=== PATIENT | male | born 1955 | race Caucasian/White ===

== ENCOUNTER → 2020-03-16 | Outpatient (CLI) | payer MEDICARE, OTHER ==
--- NOTE | 2020-03-16 11:13 | XR ---
EXAMINATION TYPE: XR KUB DATE OF EXAM: 03/16/2020 COMPARISON: 05/04/2014 HISTORY: Stent placement TECHNIQUE: One view abdominal series FINDINGS: The osseous structures are intact. The bowel gas pattern is nonspecific. Left double-J ureteral sten t noted. There are 2 calcifications overlying the renal outline largest measuring diameter 3 mm. Ther e are numerous calcifications involving the mid to distal ureter along the course of the stent. There is at least one 5 mm calcification overlying the right kidney. Bowel content limits assessment of portions of the right renal outline. Arthropathy of the hips. IMPRESSION: 1. Numerous calcifications along the mid to distal ureteral stent. 2. Bilateral nephrolithiasis
== END | disposition home or self-care (01) ==
LOC: RADXRMAIN 10:49
PROVIDERS: ATTEND Urology
DX: N20.0 Calculus of kidney (principal); N28.89 Other specified disorders of kidney and ureter; Z96.0 Presence of urogenital implants
CPT/HCPCS: 74018

== ENCOUNTER 2020-03-24 08:20 | Day surgery (SDC) | payer MEDICARE, OTHER ==
[2020-03-18 15:57] VITALS: BMI 24.0
--- NOTE | 2020-03-23 08:12 | P.HPIHPCON ---
History of Present Illness H&P Date: 03/23/20 Chief Complaint: left ureteral stone/ bilateral renal stones Mr. Field is a 64 yo male with hx of left sided ureteral stone S/P left ureteroscopy and ESWL at [place]. He had a follow up KUB which showed residual stone along the stent and bilateral non-obstructive stones. I discussed with him given his residual stone he will need to undergo ureteroscopy to address his stone burden prior to removing the stent. His KUB also showed bilateral renal calculi, option of observation, Ureteroscopy and ESWL were discussed with him for those stone. He agreed to proceed with bilateral ureteroscopy, with holmium laser lithotripsy. Discussed risk and benefit in details. He agreed to proceed. I discussed with him the risk of bleeding, infection, ureteral perforation. I also discussed risk from anesthesia. Consent for Procedure: I have explained the operation/procedure to the patient, including the risks, benefits, side effects, alternative therapies (including not receiving the proposed treatment or service), the likelihood of the patient achieving his/her goals, and potential recuperation problems for the procedure/sedation/analgesia, as well as any blood products, if indicated. I also explained to the patient the risks, benefits and side effects of the alternatives, as well as the risks related to not receiving the proposed procedure, care, treatment, or services. - Constitutional Constitutional: Denies chills, Denies fever - Respiratory Respiratory: Denies cough, Denies 7 - Gastrointestinal Gastrointestinal: Reports as per HPI Past Medical History Past Medical History: GERD/Reflux, Hyperlipidemia Additional Past Medical History / Comment(s): Multiple nephrolithiasis , R kidney is smaller. History of Any Multi-Drug Resistant Organisms: None Reported Past Surgical History: Hernia Repair Additional Past Surgical History / Comment(s): Multiple lithotripsies, bilateral inguinal hernia repairs, cataract removal bilaterally, colonoscopy-normal. Past Anesthesia/Blood Transfusion Reactions: Postoperative Nausea & Vomiting (PONV) Additional Past Anesthesia/Blood Transfusion Reaction / Comment(s): Pt has had PONV with some of his surgeries.no hx blood transfusion Smoking Status: Former smoker - Past Family History Father Family Medical History: COPD, Coronary Artery Disease (CAD), Myocardial Infarction ([place]) Additional Family Medical History / Comment(s): Father of a ME at age 67 yrs. He was a smoker. Mother Additional Family Medical History / Comment(s): Abiodun. Mother at age 90 yrs of age. Medications and Allergies Home Medications Medication Instructions Recorded Confirmed Type Omeprazole 20 mg PO QAM 10/28/15 03/18/20 History Potassium Citrate [Urocit-K] 15 meq PO BID 10/28/15 03/18/20 History Pravastatin Sodium [Pravachol] 20 mg PO HS 10/28/15 03/18/20 History allopurinoL [Zyloprim] 100 mg PO DAILY 10/28/15 03/18/20 History Acetaminophen [Tylenol Extra 500 - 1,000 mg PO Q6H PRN 03/18/20 03/18/20 History Strength] HYDROcodone/APAP 5-325MG [[place] 1 tab PO Q6HR PRN 03/18/20 03/18/20 History 5-325] Multivitamins, Thera [Multivitamin 1 tab PO DAILY 03/18/20 03/18/20 History (formulary)] Vitamin D (Unknown Dose) 1 tab PO DAILY 03/18/20 03/18/20 History Allergies Allergy/AdvReac Type Severity Reaction Status Date / Time No Known Allergies Allergy Verified 03/18/20 15:50 Surgical - Exam - General well developed, well nourished, no distress, moderate pain - ENT normal mucosa, no hearing loss - Respiratory normal expansion, normal respiratory effort - Psychiatric oriented to time, oriented to person, oriented to place Assessment and Plan Assessment: Mr Field is 64 yo male with hx of left sided ureteral stone and bilateral renal stones -OR for cystoscopy, bilateral ureteroscopy, holmium laser lithotripsy, stone basketting and stent placement
[~2020-03-24 08:20] MED LIST: LACTATED RINGERS 1,000 ML IV SCH
--- NOTE | 2020-03-24 08:39 | XR ---
EXAMINATION TYPE: XR KUB DATE OF EXAM: 03/24/2020 HISTORY: kidney stones,DOS 03-24-20 Comparison: 03/16/2020Single KUB is submitted for interpretation. Findings: Right renal calculi: Stable right-sided nephrolithiasis. Right ureteral calculi: None Visualized. Left renal calculi: Stable renal calculus lower pole left kidney. Left ureteral calculi: Left-sided ureteral stent noted with multiple fragmented calcifications noted along the course of the middle one third of the left ureter. Pelvic calcifications: None Visualized. Bowel gas pattern is unremarkable. No free air. No mass effects. IMPRESSION: 1. Left-sided ureteral stent noted with multiple fragmented calcifications noted along the course of the middle one third of the left ureter.
[2020-03-24 08:50] VITALS: RESP 16
[2020-03-24] MEDS ORDERED: ONDANSETRON 4 MG/2 ML VIAL ONE ×2 (08:53→10:42)
[2020-03-24] MEDS ORDERED: DEXAMETHASONE SOD PHOSPHATE 10 MG/ML 1 ML VIAL IV ONE (08:55)
[2020-03-24] MEDS ORDERED: LIDOCAINE 1% INJ 10MG/ML (20 ML MDV) ONE (10:42)
[2020-03-24] MEDS ORDERED: PROPOFOL 10 MG/ML 20 ML VIAL IV ONE (10:42)
[2020-03-24] MEDS ORDERED: fentaNYL (PF) 50 MCG/ML 2 ML AMP ONE (10:42)
[2020-03-24] MEDS ORDERED: MIDAZOLAM 2 MG/2 ML VIAL ONE (10:42)
[2020-03-24] MEDS ORDERED: ePHEDrine SULFATE/0.9% NACL/PF 50 MG/5 ML SYRINGE IV ONE (10:42)
[2020-03-24] MEDS ORDERED: SUCCINYLCHOLINE CHLORIDE 100 MG/5 ML SYR IV ONE (10:42)
[2020-03-24] MEDS ORDERED: LACTATED RINGERS 1,000 ML IV ONE (12:15)
[2020-03-24] MEDS ORDERED: IOHEXOL 350 MG/ML 50 ML in EMPTY BAG 1 BAG IRRIGATION ONE (12:47)
--- NOTE | 2020-03-24 14:51 | P.OP ---
Date of Procedure: 03/24/20 Preoperative Diagnosis: left ureteral stone, bilateral renal stones Postoperative Diagnosis: same Procedure(s) Performed: cystoscopy, bilateral ureteroscopy, left laser lithotripsy, stone basketing, bilateral retrograde pyelogram and bilateral stent placement Implants: 6-Icelandic by 26 cm stent bilaterally Anesthesia: LYUDMILA Surgeon: Edgar Sloan Estimated Blood Loss (ml): 10 Pathology: other (left ureteral stone) Condition: stable Disposition: PACU Indications for Procedure: Mr. Field is a 64 yo male with hx of left sided ureteral stone S/P left ureteroscopy and ESWL at [place]. He had a follow up KUB which showed residual stone along the stent and bilateral non-obstructive stones. I discussed with him given his residual stone he will need to undergo ureteroscopy to address his stone burden prior to removing the stent. His KUB also showed bilateral renal calculi, option of observation, Ureteroscopy and ESWL were discussed with him for those stone. He agreed to proceed with bilateral ureteroscopy, with holmium laser lithotripsy. Discussed risk and benefit in details. He agreed to proceed. I discussed with him the risk of bleeding, infection, ureteral perforation. I also discussed risk from anesthesia. Operative Findings: ureteral stent with significant stones around the stent unable to remove the stent initially, requiring laser lithotripsy of stones around the stent in order to remove the stent. Multiple fragments throughout the distal left ureter. Significant scarring of the distal ureter. 3 stones in the left kidney. Description of Procedure: the patient was brought to the operating room, general anesthesia was induced. He was prepped and draped in sterile fashion a placement dorsal lithotomy position. Cystoscopy fitted with a 21-Icelandic sheath was inserted per urethra, there was evidence of a bulbar stricture but I was able to navigate the scope past the stricture. Additionally within the prostate there appears to be 2 false passages that were smaller caliber. The cystoscope was advanced past the prostate and into the bladder, cystoscopy was performed showed no abnormality within the bladder. Attention was then carried to the left ureteral orifice the stent was grasped using a stent grasper and I attempted to remove the stent but the stent was stuck at the distal ureter. At this time a semirigid ureteroscope was inserted through the urethra and advanced up the left ureteral orifice, there was significant amount of stone around the stents. the ureter was of narrow caliber, and there was significant scarring in the distal to mid ureter junction. Using the holmium laser the fragment were fragmented. And the stent was removed. At this time the semirigid ureteroscopy was reinserted, multiple large stone fragments were encountered and fragmented using the holmium laser, the fragments were removed using the stone basket. Repeat ureteroscopy showed no residual stones but of note there was severe scarring, with white fibrotic tissue at the distal to mid ureter junction, the area of scarring was 3 cm. The rest of the ureter was of normal appearance. At this time a sensor wire was advanced through the ureteroscope and the ureteroscope was withdrawn with the wire in place. Next an 11 x 13-Icelandic access sheath was passed over the wire and the flexible ureteroscope was reinserted through the access sheath, renoscopy was performed which showed approximately 3 stones within the kidney which were dusted using the holmium laser. Repeat renoscopy showed no sizable fragments or any additional stones. Pullback ureteroscopy was performed which showed no injury to the ureter just the area of scarring that was previously noticed. At this time a 6-Icelandic by 26 cm stent was passed over the wire, the proximal curl was visualized on fluoroscopy and the distal curl using the cystoscope. Attention was encountered to the right side. Right-sided was intubated with a 5-Icelandic open-ended catheter and retrograde Polygram was performed which showed no filling defect along the course a ureter. Of note the ureter was of narrow caliber there was tortuosity along the proximal ureter. Next a sensor wire was advanced through the catheter and the catheter was removed with the wire in place. Next an 11 x 13-Icelandic access sheath was passed over the wire but resistance was met at the distal ureter. At this time the access sheath was removed with the wire was remained in place. Next a flexible ureteroscope was advanced over the wire and I was able to advance the ureteroscope up to the proximal ureter, but at that area there was an additional area of narrowing and was not able to navigate the scope past the narrowing. at this time the ureteroscope was withdrawn and a 6-Icelandic by 26 cm stent was passed over the wire the proximal closure the fluoroscopy and the distal curl visualized using the cystoscope. The bladder and emptied and then the case the patient tolerated the procedure well was taken to PACU in stable condition
[2020-03-24 14:53] VITALS: TEMP 97
[2020-03-24] MEDS: HYDROmorphone 0.5 MG/0.5 ML SYRINGE IVP PRN ×2 (15:01→15:13)
--- NOTE | 2020-03-24 15:11 | FL ---
EXAMINATION TYPE: FL urography retrograde DATE OF EXAM: 03/24/2020 COMPARISON: NONE HISTORY: KENN RENAL CALCULI, LASER LITHO, KENN STENT PLACE TECHNIQUE: Fluoroscopy. FINDINGS: dr. eason supervised use of noel for a kenn renal calculi, used laser to break stones, kenn stent placement. fl time of 1.32 mins IMPRESSION: As Above.
[2020-03-24] MEDS ORDERED: traMADol 50 MG TAB ONE (16:24)
[2020-03-24 16:47] VITALS: BP 157/85; PULSE 77
[2020-03-24] MEDS ORDERED: DEXAMETHASONE SOD PHOSPHATE 4 MG/ML 1 ML VIAL IVP ONE (16:54)
== END 2020-03-24 17:08 | disposition home or self-care (01) ==
LOC: OR 08:20
PROVIDERS: ATTEND Urology
DX: N20.2 Calculus of kidney with calculus of ureter (principal); N35.912 Unspecified bulbous urethral stricture, male; E78.5 Hyperlipidemia, unspecified; K21.9 Gastro-esophageal reflux disease without esophagitis; Z87.891 Personal history of nicotine dependence; Z87.442 Personal history of urinary calculi; Z79.899 Other long term (current) drug therapy; Z98.890 Other specified postprocedural states; Z98.41 Cataract extraction status, right eye; Z98.42 Cataract extraction status, left eye; Z82.49 Family history of ischemic heart disease and other diseases of the circulatory system; Z81.2 Family history of tobacco abuse and dependence; Z83.6 Family history of other diseases of the respiratory system
CPT/HCPCS: 82365; 74420; 74018; 52356; 52332; C2625; C1758; C1769; J2250; J1100 ×2; J0690; J2405; J2001; J3010; J0330; J2704; Q9967; J1170

== ENCOUNTER 2020-04-16 11:19 | Day surgery (SDC) | payer OTHER, MEDICARE ==
[2020-04-13 13:32] VITALS: BMI 23.8
--- NOTE | 2020-04-15 22:04 | P.HPIHPCON ---
History of Present Illness H&P Date: 04/15/20 Chief Complaint: right sided renal stone Mr Field is 64 yo with hx of left sided ureteral stone S/P left ureteroscopy, for impacted ureteral stone, and scarred left ureter. He also has hx of right sided stone, He presents today for right sided ureteroscopy and left sided left sided reterograde pyelogram to assess for healing of scarring prior to stent removal. I discussed with him the risk of bleeding, infection and injury to the ureter. He understood all risks and agreed to proceed Consent for Procedure: I have explained the operation/procedure to the patient, including the risks, benefits, side effects, alternative therapies (including not receiving the proposed treatment or service), the likelihood of the patient achieving his/her goals, and potential recuperation problems for the procedure/sedation/analgesia, as well as any blood products, if indicated. I also explained to the patient the risks, benefits and side effects of the alternatives, as well as the risks related to not receiving the proposed procedure, care, treatment, or services. - Constitutional Constitutional: Denies chills, Denies fever - Cardiovascular Cardiovascular: Denies chest pain, Denies shortness of breath - Respiratory Respiratory: Denies cough, Denies 7 - Musculoskeletal Musculoskeletal: Denies myalgias - Neurological Neurological: Denies numbness, Denies weakness Past Medical History Past Medical History: GERD/Reflux, Hyperlipidemia Additional Past Medical History / Comment(s): Multiple nephrolithiasis , R kidney is smaller., unable to urinate after last kidney stone procedure 03/24/20 and had catheter inserted for 4-5 days post-op. ([facility]) History of Any Multi-Drug Resistant Organisms: None Reported Past Surgical History: Hernia Repair Additional Past Surgical History / Comment(s): Multiple lithotripsies, bilateral inguinal hernia repairs, cataracts, colonoscopy,. 03/24/20 cysto with lithotripsy with right ureteral stent., states left ureteral stent February/2020. Past Anesthesia/Blood Transfusion Reactions: Postoperative Nausea & Vomiting (PONV) Additional Past Anesthesia/Blood Transfusion Reaction / Comment(s): PONV, UNABLE TO URINATE AFTER LAST KIDNEY STONE PROCEDURE AND HAD TO HAVE CATHETER INSERTED. Past Psychological History: No Psychological Hx Reported Additional Psychological History / Comment(s): . Smoking Status: Former smoker Past Alcohol Use History: None Reported Additional Past Alcohol Use History / Comment(s): Pt started smoking in 1974 and quit in 2008 Past Drug Use History: None Reported - Past Family History Father Family Medical History: COPD, Coronary Artery Disease (CAD), Myocardial Infar ction ([place]) Additional Family Medical History / Comment(s): Father of a [place] at age 67 yrs. He was a smoker. Mother Additional Family Medical History / Comment(s): Abiodun. Mother at age 90 yrs of age. Medications and Allergies Home Medications Medication Instructions Recorded Confirmed Type Omeprazole 20 mg PO QAM 10/28/15 04/13/20 History Potassium Citrate [Urocit-K] 15 meq PO BID 10/28/15 04/13/20 History Pravastatin Sodium [Pravachol] 20 mg PO HS 10/28/15 04/13/20 History allopurinoL [Zyloprim] 100 mg PO DAILY 10/28/15 04/13/20 History HYDROcodone/APAP 5-325MG [[place] 1 tab PO DIRECTED PRN 03/18/20 04/13/20 History 5-325] Multivitamins, Thera [Multivitamin 1 tab PO DAILY 03/18/20 04/13/20 History (formulary)] Vitamin D (Unknown Dose) 1 tab PO DAILY 03/18/20 04/13/20 History Ibuprofen [Motrin] 600 mg PO Q8HR PRN 04/13/20 04/13/20 History traMADol HCL [Ultram] 50 mg PO DIRECTED PRN 04/13/20 04/13/20 History Allergies Allergy/AdvReac Type Severity Reaction Status Date / Time No Known Allergies Allergy Verified 04/13/20 13:01 Surgical - Exam - General well developed, well nourished, no distress, no pain - Respiratory normal expansion, normal respiratory effort - Abdomen Abdomen: soft, non tender - Psychiatric oriented to time, oriented to person, oriented to place Assessment and Plan Plan: OR for right sided ureteroscopy with holmium laser and left sided reterograde pyelogram and stent removal
[~2020-04-16 11:19] MED LIST changes: +DEXAMETHASONE SOD PHOSPHATE 10 MG/ML 1 ML VIAL IV ONE; +HYDROmorphone 0.5 MG/0.5 ML SYRINGE IVP PRN; +LIDOCAINE 1% (10MG/ML) FOR IV START INTRADERMA PRN; +ONDANSETRON 4 MG/2 ML VIAL IVP ONE; +SCOPOLAMINE 1.5MG/72HR PATCH TRANSDERM ONE
--- NOTE | 2020-04-16 12:40 | XR ---
KUB HISTORY: Renal calculus, ureteral calculus Frontal KUB on 2 images correlated to prior KUB 03/24/2020 Double-J ureteral stents are present bilaterally. Calcifications are present over both kidneys, large st over the upper pole on the right measures approximately 8 to 9 mm in greatest dimension. Bowel gas obscures detail bilaterally. Calcification of the lower pole the left kidney measures approximately 6 to 7 mm. IMPRESSION: Bilateral nephrolithiasis. CT scan may be of benefit.
[2020-04-16] MEDS ORDERED: HYDROmorphone (PF) 1 MG/ML ONE (13:29)
[2020-04-16] MEDS ORDERED: MIDAZOLAM 2 MG/2 ML VIAL ONE (13:29)
[2020-04-16] MEDS ORDERED: LIDOCAINE 1% INJ 10MG/ML (20 ML MDV) ONE (13:29)
[2020-04-16] MEDS ORDERED: fentaNYL (PF) 50 MCG/ML 2 ML AMP ONE (13:29)
[2020-04-16] MEDS ORDERED: ROCURONIUM BROMIDE 10 MG/ML 5 ML VIAL IV ONE (13:29)
[2020-04-16] MEDS ORDERED: PROPOFOL 10 MG/ML 20 ML VIAL IV ONE (13:29)
[2020-04-16] MEDS ORDERED: SUCCINYLCHOLINE CHLORIDE 100 MG/5 ML SYR IV ONE (13:29)
[2020-04-16] MEDS ORDERED: IOPAMIDOL-370 50ML BTL MISCELLANE ONE (13:34)
[2020-04-16] MEDS ORDERED: LACTATED RINGERS 1,000 ML IV ONE (14:52)
--- NOTE | 2020-04-16 15:13 | P.OP ---
Date of Procedure: 04/16/20 Preoperative Diagnosis: right sided renal stone Postoperative Diagnosis: same Procedure(s) Performed: Cystoscopy,bilateral reterograde pyelogram, ureteroscopy, right sided holmium laser stone basketting and left sided stent exchange Implants: 4.8 Fr X 24 cm stent on string on left Anesthesia: LYUDMILA Surgeon: Edgar Sloan Pathology: other (right renal calculi) Condition: stable Disposition: PACU Indications for Procedure: Mr Field is 64 yo with hx of left sided ureteral stone S/P left ureteroscopy, for impacted ureteral stone, and scarred left ureter. He also has hx of right sided stone, He presents today for right sided ureteroscopy and left sided left sided reterograde pyelogram to assess for healing of scarring prior to stent removal. I discussed with him the risk of bleeding, infection and injury to the ureter. He understood all risks and agreed to proceed Operative Findings: left distal ureter, narrowed and edematous, able to pass the ureteroscope pass it the narrowing. large right sided renal stone Description of Procedure: Patient was brought to the operating room, general anesthesia was induced. He was prepped and draped sterile fashion a placement dorsal lithotomy position. Cystoscopy fitted with 21-Kazakh sheath was inserted per urethra, cystoscopy was performed showed no abnormality within the bladder. Attention was then carried to the left ureteral orifice, the stent was seen protruding from the left ureteral orifice. The stent was grasped and removed. The cystoscope was reinserted and left ureteral orfice was intubated with a 4-Kazakh open-ended catheter, retrograde pyelogram was performed which showed narrowing along the distal ureter with proximal dilation past that. At this time the catheter was removed and a semirigid ureteroscope was inserted, it was advanced up the left ureteral orifice, stent encrustation was appreciated along the course of the distal ureter, no stone were encountered. Additionally the previous area of narrowing in the distal ureter was still narrowed and edematous, but of note I was able to advance the ureteroscope past the area. At this time the ureteroscope was withdrawn and a wire was placed on the left side. Next a flexible ureteroscope was passed over the wire, renoscopy was performed which showed no renal stones. Pullback ureteroscopy was performed which showed no injury to the ureter or ureteral stones. Given the narrowing in the distal ureter decision was made to place a stent. A 4.8-Kazakh x 24 cm stent was passed over the wire, the proximal curl was visualized on fluoroscopy and distal curl was visualized on the cystoscope. The stent was left on a string. Attention was then carried to the right side. A semirigid ureteroscope was advanced up the right ureteral orifice and up the right ureter, no stones were encountered in the distal or mid ureter. At this time a sensor wire was advanced through the ureteroscope. The ureteroscope was withdrawn with the wire in place. Next an 11 x 13-Kazakh access sheath was passed over the wire and into the proximal ureter. Next the proximal ureteroscope was inserted through the access sheath and renoscopy was performed. Stone was encountered in the midpole and was fragmented using the holmium laser. Repeat renoscopy showed no additional stones or sizable fragments. Retrograde Polygram was performed to ensure all calyces were evaluated. Next pullback ureteroscopy was performed which showed no ureteral stones or injury to ureter the bladder was emptied at the end of case. The patient tolerated procedure well taken to PACU in stable condition
[2020-04-16 15:20] VITALS: TEMP 96.9
--- NOTE | 2020-04-16 15:21 | FL ---
Fluoroscopy HISTORY: Stent change, ureteroscopy 52 seconds fluoroscopy time supplied to the referring clinician. 3 intraoperative C-arm images docum ent the procedure. See dictated report from urology.
[2020-04-16 16:00] VITALS: RESP 16
[2020-04-16] MEDS ORDERED: ONDANSETRON 4 MG/2 ML VIAL ONE (16:12)
[2020-04-16] MEDS ORDERED: ONDANSETRON 4 MG/2 ML VIAL IVP ONE (16:30)
[2020-04-16] MEDS ORDERED: HYDROcodone/APAP 5-325MG 1 EACH TAB ONE (16:32)
[2020-04-16] MEDS ORDERED: HYDROcodone/APAP 5-325MG 1 EACH TAB PO ONE (16:38)
[2020-04-16 17:28] VITALS: BP 163/85; PULSE 83
== END 2020-04-16 17:37 | disposition home or self-care (01) ==
LOC: OR 11:19
PROVIDERS: ATTEND Urology
DX: N20.0 Calculus of kidney (principal); T83.192A Other mechanical complication of indwelling ureteral stent, initial encounter; N13.5 Crossing vessel and stricture of ureter without hydronephrosis; K21.9 Gastro-esophageal reflux disease without esophagitis; E78.5 Hyperlipidemia, unspecified; N27.0 Small kidney, unilateral; Z87.442 Personal history of urinary calculi; Z98.890 Other specified postprocedural states; Z87.19 Personal history of other diseases of the digestive system; Z98.41 Cataract extraction status, right eye; Z98.42 Cataract extraction status, left eye; Z96.0 Presence of urogenital implants; Z91.89 Other specified personal risk factors, not elsewhere classified; Z87.898 Personal history of other specified conditions; Z87.891 Personal history of nicotine dependence; Z79.899 Other long term (current) drug therapy; Z82.5 Family history of asthma and other chronic lower respiratory diseases; Z82.49 Family history of ischemic heart disease and other diseases of the circulatory system; Z81.2 Family history of tobacco abuse and dependence; Z83.2 Family history of diseases of the blood and blood-forming organs and certain disorders involving the immune mechanism
CPT/HCPCS: 52332; 52353; 82365; 74420; 74018; C2625; C1758; C1769; J2250; J1100; J0690; J2405; J2001; J3010; J1170 ×2; J0330; J2704; Q9967

== ENCOUNTER 2020-05-13 01:57 | Emergency (ER) | payer OTHER, MEDICARE ==
[2020-05-13] MEDS ORDERED: HYDROmorphone 0.5 MG/0.5 ML SYRINGE IVP STA (02:16)
[2020-05-13] MEDS ORDERED: ONDANSETRON 4 MG/2 ML VIAL IVP STA (02:22)
--- NOTE | 2020-05-13 02:36 | ED ---
General Adult HPI - General Chief complaint: Urogenital Stated complaint: Abd pain Time Seen by Provider: 05/13/20 02:05 Source: patient, RN/MD, EMS Mode of arrival: EMS Limitations: no limitations - History of Present Illness Initial comments: This patient is 64-year-old man who arrives as a transfer from [facility]. The patient had gone there tonight for worsening left-sided abdominal pain and the patient states that he had been similar to the kidney stone pain he had been having. patent repoedly had lithotripsy then a ureteral stent that was removed on April 23. Patient sees Dr. Sloan. The atint head cT scan at the other facilitythat showe hydronephrosis and also the creatinine was elevated at 1.8 Onset/Timin -: days(s) Location: abdomen Radiation: non-radiation Severity scale (1-10): 5 Quality: aching Consistency: constant Improves with: medication Worsens with: none Associated Symptoms: denies other symptoms Treatments Prior to Arrival: NSAID - Related Data Home Medications Medication Instructions Recorded Confirmed Omeprazole 20 mg PO QAM 10/28/15 04/16/20 Potassium Citrate [Urocit-K] 15 meq PO BID 10/28/15 04/16/20 Pravastatin Sodium [Pravachol] 20 mg PO HS 10/28/15 04/16/20 allopurinoL [Zyloprim] 100 mg PO DAILY 10/28/15 04/16/20 HYDROcodone/APAP 5-325MG [[place] 1 tab PO DIRECTED PRN 03/18/20 04/16/20 5-325] Multivitamins, Thera [Multivitamin 1 tab PO DAILY 03/18/20 04/16/20 (formulary)] Vitamin D (Unknown Dose) 1 tab PO DAILY 03/18/20 04/16/20 Ibuprofen [Motrin] 600 mg PO Q8HR PRN 04/13/20 04/16/20 traMADol HCL [Ultram] 50 mg PO DIRECTED PRN 04/13/20 04/16/20 Previous Rx's Medication Instructions Recorded Ibuprofen 600 mg PO Q6H PRN #30 tab 04/16/20 Allergies Allergy/AdvReac Type Severity Reaction Status Date / Time No Known Allergies Allergy Verified 05/13/20 02:06 Review of Systems ROS Statement: Those systems with pertinent positive or pertinent negative responses have been documented in the HPI. ROS Other: All systems not noted in ROS Statement are negative. Constitutional: Denies: fever, chills Respiratory: Denies: cough, dyspnea Cardiovascular: Denies: chest pain, palpitations Gastrointestinal: Reports: abdominal pain. Denies: nausea, vomiting, diarrhea Genitourinary: Denies: dysuria, frequency, hematuria Musculoskeletal: Denies: back pain Skin: Denies: rash Neurological: Denies: headache, weakness, numbness Past Medical History Past Medical History: GERD/Reflux, Hyperlipidemia Additional Past Medical History / Comment(s): Multiple nephrolithiasis , R kidney is smaller., unable to urinate after last kidney stone procedure 03/24/20 and had catheter inserted for 4-5 days post-op. ([facility]) History of Any Multi-Drug Resistant Organisms: None Reported Past Surgical History: Hernia Repair Additional Past Surgical History / Comment(s): Multiple lithotripsies, bilateral inguinal hernia repairs, cataracts, colonoscopy,. 03/24/20 cysto with lit hotripsy with right ureteral stent., states left ureteral stent February/2020. Past Anesthesia/Blood Transfusion Reactions: Postoperative Nausea & Vomiting (PONV) Additional Past Anesthesia/Blood Transfusion Reaction / Comment(s): PONV, UNABLE TO URINATE AFTER LAST KIDNEY STONE PROCEDURE AND HAD TO HAVE CATHETER INSERTED. Past Psychological History: No Psychological Hx Reported Smoking Status: Former smoker Past Alcohol Use History: None Reported Past Drug Use History: None Reported - Past Family History Father Family Medical History: COPD, Coronary Artery Disease (CAD), Myocardial Infarcti on ([place]) Additional Family Medical History / Comment(s): Father of a [place] at age 67 yrs. He was a smoker. Mother Additional Family Medical History / Comment(s): Shogrens. Mother at age 90 yrs of age. General Exam Limitations: no limitations Course Vital Signs 05/13/20 02:00 Temperature 98.2 F Pulse Rate 71 Respiratory 18 Rate Blood Pressure 162/110 O2 Sat by Pulse 99 Oximetry Medical Decision Making - Medical Decision Making Patient is 64-year-old man with left flank pain, hydronephrosis, and mild elevation of creatinine. Case discussed with Dr. Figueroa, covering for urology. He states that he believes that will be in the clinic this morning and that the patient should see him first thing. Patient states that his symptoms have been managed adequately and that he feels comfortable with following in clinic first thing. Disposition Clinical Impression: Renal colic on left side, Acute kidney injury Disposition: HOME SELF-CARE Condition: Good Instructions (If sedation given, give patient instructions): Acute Kidney Injury (DC), Renal Colic (ED) Is patient prescribed a controlled substance at d/c from ED?: No Referrals: Matthew De La Fuente MD [Primary Care Provider] - 1-2 days Edgar Sloan MD [STAFF PHYSICIAN] - 1-2 days
[2020-05-13 08:10] VITALS: BP 144/81; PULSE 76; RESP 14; TEMP 98.1
== END 2020-05-13 08:14 | disposition home or self-care (01) ==
LOC: EC 01:57
DX: N17.9 Acute kidney failure, unspecified (principal); N23 Unspecified renal colic; K21.9 Gastro-esophageal reflux disease without esophagitis; E78.5 Hyperlipidemia, unspecified; Z79.899 Other long term (current) drug therapy; Z87.891 Personal history of nicotine dependence
CPT/HCPCS: 99284; 96374; 96375; J2405; J1170

== ENCOUNTER 2020-07-22 10:13 | Day surgery (SDC) | payer OTHER, MEDICARE ==
[2020-07-21 13:55] VITALS: BMI 23.6
--- NOTE | 2020-07-21 22:36 | P.HPIHPCON ---
History of Present Illness H&P Date: 07/22/20 Chief Complaint: left sided ureteral stone Mr Field is a 64 yo male with hx of 5mm left distal ureteral stone. He is symptomatic from his stone. I discussed with him the option of doing a left sided ureteroscopy with holmium laser lithotripsy. I discussed with him the risk and benefit of surgery. He understood all risks and agreed to proceed. Consent for Procedure: I have explained the operation/procedure to the patient, including the risks, be nefits, side effects, alternative therapies (including not receiving the proposed treatment or service), the likelihood of the patient achieving his/her goals, and potential recuperation problems for the procedure/sedation/analgesia, as well as any blood products, if indicated. I also explained to the patient the risks, benefits and side effects of the alternatives, as well as the risks related to not receiving the proposed procedure, care, treatment, or services. - Constitutional Constitutional: Denies chills, Denies fever - Cardiovascular Cardiovascular: Denies chest pain, Denies shortness of breath - Respiratory Respiratory: Denies cough, Denies 7 - Gastrointestinal Gastrointestinal: Reports abdominal pain Past Medical History Past Medical History: GERD/Reflux, Hyperlipidemia Additional Past Medical History / Comment(s): Multiple nephrolithiasis, right kidney is smaller. Was unable to urinate after last kidney stone procedure 03/24/20 and had catheter inserted for 4-5 days post-op. ([facility]) History of Any Multi-Drug Resistant Organisms: None Reported Past Surgical History: Hernia Repair Additional Past Surgical History / Comment(s): Multiple lithotripsies, bilateral inguinal hernia repairs, cataracts, colonoscopy, cystoscopy with lithotripsy with right ureteral stent, left ureteral stent. Past Anesthesia/Blood Transfusion Reactions: Postoperative Nausea & Vomiting (PONV) Additional Past Anesthesia/Blood Transfusion Reaction / Comment(s): UNABLE TO URINATE AFTER LAST KIDNEY STONE PROCEDURE AND HAD TO HAVE CATHETER INSERTED. Past Psychological History: No Psychological Hx Reported Smoking Status: Former smoker Past Alcohol Use History: None Reported Additional Past Alcohol Use History / Comment(s): Pt started smoking in 1974 and quit in 2008. Past Drug Use History: None Reported - Past Family History Father Family Medical History: COPD, Coronary Artery Disease (CAD), Myocardial Infarction ([place]) Additional Family Medical History / Comment(s): Father of a [place] at age 67 yrs. He was a smoker. Mother Additional Family Medical History / Comment(s): Abiodun. Mother at age 90 yrs of age. Medications and Allergies Home Medications Medication Instructions Recorded Confirmed Type Omeprazole 20 mg PO QAM 10/28/15 07/21/20 History Potassium Citrate [Urocit-K] 15 meq PO BID 10/28/15 07/21/20 History Pravastatin Sodium [Pravachol] 20 mg PO HS 10/28/15 07/21/20 History HYDROcodone/APAP 5-325MG [[place] 1 tab PO DIRECTED PRN 03/18/20 07/21/20 History 5-325] Multivitamins, Thera [Multivitamin 1 tab PO DAILY 03/18/20 07/21/20 History (formulary)] Ibuprofen 600 mg PO Q6H PRN #30 tab 04/16/20 07/21/20 Rx Allopurinol [Zyloprim] 300 mg PO DAILY 07/21/20 07/21/20 History Cholecalciferol [Vitamin D3 (25 1,000 unit PO DAILY 07/21/20 07/21/20 History Mcg = 1000 Iu)] Allergies Allergy/AdvReac Type Severity Reaction Status Date / Time No Known Allergies Allergy Verified 07/21/20 14:38 Surgical - Exam - General moderate distress, moderate pain - Eyes PERRL, normal ocular movement - ENT normal nares, normal mucosa - Abdomen Abdomen: soft, non tender - Psychiatric oriented to time, oriented to person, oriented to place Assessment and Plan Assessment: 64 yo male with left sided ureteral stone -OR for left sided ureteroscopy with holmium laser lithotripsy, stone basketting and possibile stent placement
--- NOTE | 2020-07-22 10:39 | XR ---
EXAMINATION TYPE: XR KUB DATE OF EXAM: 07/22/2020 10:27 AM CLINICAL HISTORY: Left-sided calculus. TECHNIQUE: Two supine KUB images of the abdomen are obtained. COMPARISON: Outside CT abdomen and pelvis May 12, 2020. FINDINGS: Suboptimal evaluation right kidney due to overlying fecal material. Possible punctate 2 to 3 mm calcification left kidney at the L2 level. No obstructing left ureter calculus clearly seen. Pos sible partially calcified soft tissue mass or uroepithelial tumor in the distal left ureter on CT rev iew. Overall nonobstructive bowel gas pattern. Visualized lung bases are clear. IMPRESSION: As above.
[2020-07-22 10:45] VITALS: TEMP 97.5
[2020-07-22] MEDS ORDERED: ONDANSETRON 4 MG/2 ML VIAL IVP ONE (11:00)
[2020-07-22] MEDS ORDERED: LACTATED RINGERS 1,000 ML IV ONE ×2 (11:00→13:03)
[2020-07-22] MEDS ORDERED: DEXAMETHASONE SOD PHOSPHATE 4 MG/ML 1 ML VIAL IVP ONE (11:00)
[2020-07-22] MEDS ORDERED: ONDANSETRON 4 MG/2 ML VIAL ONE (11:01)
[2020-07-22] MEDS ORDERED: LIDOCAINE 1% INJ 10MG/ML (20 ML MDV) ONE (11:02)
[2020-07-22] MEDS ORDERED: SUCCINYLCHOLINE CHLORIDE 100 MG/5 ML SYR IV ONE (11:02)
[2020-07-22] MEDS ORDERED: fentaNYL (PF) 50 MCG/ML 2 ML AMP ONE (11:02)
[2020-07-22] MEDS ORDERED: ePHEDrine SULFATE/0.9% NACL/PF 50 MG/5 ML SYRINGE IV ONE (11:02)
[2020-07-22] MEDS ORDERED: PROPOFOL 10 MG/ML 20 ML VIAL IV ONE (11:02)
[2020-07-22] MEDS ORDERED: MIDAZOLAM 2 MG/2 ML VIAL ONE (11:02)
[2020-07-22] MEDS ORDERED: WATER FOR INJECTION, STERILE 10 ML VIAL IV ONE (11:02)
[2020-07-22] MEDS ORDERED: LIDOCAINE 1% (10MG/ML) FOR IV START INTRADERMA ONE (11:09)
[2020-07-22] MEDS ORDERED: IOPAMIDOL-370 50ML BTL MISCELLANE ONE (11:38)
[2020-07-22 12:42] VITALS: RESP 16
--- NOTE | 2020-07-22 13:01 | FL ---
EXAMINATION TYPE: FL guidance operating room DATE OF EXAM: 07/22/2020 CLINICAL HISTORY: Obstructing right ureter calculus TECHNIQUE: Fluoroscopy. COMPARISON: None. FINDINGS: Fluoroscopic guidance was provided during right sided lithotripsy procedure performed by Julio Enciso. A total of 0.28 minutes of fluoroscopic time was utilized during the procedure and 7 spot images was acquired. Images acquired show access at UVJ with placement of guidewire and subsequent u reter stent. IMPRESSION: As Above.
[2020-07-22 13:14] VITALS: BP 151/86; PULSE 81
--- NOTE | 2020-07-22 16:23 | P.OP ---
Date of Procedure: 07/22/20 Preoperative Diagnosis: left ureteral calculi Postoperative Diagnosis: same Procedure(s) Performed: Cystoscopy, left retrograde pyelogram, ureteroscopy, holmium laser lithotripsy, stone basketing, incision of ureteral stricture, and stent placement Implants: 6Fr X 26 cm stent Anesthesia: LYUDMILA Surgeon: Egdar Sloan Estimated Blood Loss (ml): 5 Pathology: none sent Indications for Procedure: Mr Field is a 64 yo male with hx of 5mm left distal ureteral stone. He is symptomatic from his stone. I discussed with him the option of doing a left sided ureteroscopy with holmium laser lithotripsy. I discussed with him the risk and benefit of surgery. He understood all risks and agreed to proceed. Operative Findings: Distal ureteral stricture, multiple small stones all measured approximetely 1-2 mm Description of Procedure: Patient was brought to the operating room, general anesthesia was induced. He was prepped and draped in sterile fashion a placemed in dorsal lithotomy position. Cystoscopy fitted with a 21-Ghanaian sheath was inserted per urethra, cystoscopy was performed showed no abnormality within the bladder. Attention was then carried to the left ureteral orifice, which was intubated with a sensor wire. Next the cystoscope was removed with the wire in place. Next a semirigid ureteroscope was inserted through the urethra and advanced up the left ureteral orifice. Of note, at this time a distal ureteral stricture was encoun tered. I attempted to advance the scope past the stricture but was not able to. At this time the wire was reinserted through the ureteroscope and the ureteroscope was withdrawn with the wire in place. Next a ureteral balloon dilator was passed over the wire, and under fluoroscopy and the stricture was dilated. Next the balloon dilator was removed and the ureteroscope was reinserted, I was able to advance the scope past the stricture, at this point multiple small stones were noticed proximal to the stricture, stone measured between 1-2 mm. Using the holmium laser the stones were further fragmented into small fragments, the fragments were removed using the stone basket. At this time attention was carried to the stricture and using the holmium laser the stricture was incised, down to fat. At this time a sensor wire was advanced through the ureteroscope and the ureteroscope was withdrawn with the wire in place. Next a flexible ureteroscope was advanced over the wire and renoscopy was performed, of note the collecting system was dilated and 60 mL of urine was drained. Renoscopy was performed which showed small parenchymal stones were encountered in the lower pole, they were dusted using the holmium laser. Renoscopy showed no additional stone fragments or injury to the kidney. Pullback ureteroscopy was performed showed no injury to the ureter or ureteral stone. Of note the stricture was patent. A stricture measured approximately 2 cm. at this time the ureteroscope was withdrawn and a wire was inserted through the ureteroscope. Next a 6-Ghanaian by 26 cm stent was passed over the wire, the proximal curl was visualized on fluoroscopy and distal curl was visualized using the cystoscope. The patient was awakened from anesthesia and taken recovery in stable condition
== END 2020-07-22 14:01 | disposition home or self-care (01) ==
LOC: OR 10:13
PROVIDERS: ATTEND Urology
DX: N20.2 Calculus of kidney with calculus of ureter (principal); N13.4 Hydroureter; N13.5 Crossing vessel and stricture of ureter without hydronephrosis; K21.9 Gastro-esophageal reflux disease without esophagitis; E78.5 Hyperlipidemia, unspecified; N27.0 Small kidney, unilateral; M10.9 Gout, unspecified; Z87.442 Personal history of urinary calculi; Z98.890 Other specified postprocedural states; Z87.19 Personal history of other diseases of the digestive system; Z98.41 Cataract extraction status, right eye; Z98.42 Cataract extraction status, left eye; Z91.89 Other specified personal risk factors, not elsewhere classified; Z87.898 Personal history of other specified conditions; Z87.891 Personal history of nicotine dependence; Z79.899 Other long term (current) drug therapy; Z82.5 Family history of asthma and other chronic lower respiratory diseases; Z82.49 Family history of ischemic heart disease and other diseases of the circulatory system; Z81.2 Family history of tobacco abuse and dependence; Z84.89 Family history of other specified conditions
CPT/HCPCS: 74018; 52356; 52341; C2625; C1758; C1769; J2250; J1100; J0690; J2405; J2001; J3010; J0330; J2704; Q9967

== ENCOUNTER → 2020-10-26 | Outpatient (CLI) | payer MEDICARE, OTHER ==
[~2020-10-26] MED LIST changes: -DEXAMETHASONE SOD PHOSPHATE 10 MG/ML 1 ML VIAL IV ONE; +FUROSEMIDE 10 MG/ML 2 ML VIAL IV ONE; -HYDROmorphone 0.5 MG/0.5 ML SYRINGE IVP PRN; -LACTATED RINGERS 1,000 ML IV SCH; -LIDOCAINE 1% (10MG/ML) FOR IV START INTRADERMA PRN; -ONDANSETRON 4 MG/2 ML VIAL IVP ONE; -SCOPOLAMINE 1.5MG/72HR PATCH TRANSDERM ONE
--- NOTE | 2020-10-26 15:50 | NM ---
EXAMINATION TYPE: NM lasix renogram DATE OF EXAM: 10/26/2020 COMPARISON: CT 05/12/2020 HISTORY: Hydronephrosis Following administration of 10.04 mCi Tc 99m MAG3 with 20mg Lasix. Immediate images post injection. T eleonora activity curves were generated. FINDINGS: The right kidney is diminished in size as compared to the left, CT shows the mid and lower pole to be atrophic. Left: 70.3 %. Right: 29.7 %. Max renal flow left: 30 minutes. Max renal flow right: 29.7 minutes. There is some delay of excretion bilaterally. Increasing radiopharmaceutical accumulation over time i s noted within the left kidney where as excretion and decreasing accumulation noted within the right kidney over time. T 1/2 left: N/A minutes. T 1/2 right: 19.3 minutes. IMPRESSION: Left-sided ureteral obstruction causing left-sided hydronephrosis with delayed excretion noted, right kidney is also abnormal, atrophic.
== END | disposition home or self-care (01) ==
LOC: RADNMMAIN 13:42
PROVIDERS: ATTEND Urology
DX: N13.1 Hydronephrosis with ureteral stricture, not elsewhere classified (principal); N26.1 Atrophy of kidney (terminal)
CPT/HCPCS: 78708; A9562

== ENCOUNTER 2020-11-24 22:53 | Inpatient (IN) | payer OTHER, MEDICARE ==
--- NOTE | 2020-11-24 23:20 | ED ---
General Adult HPI - General Chief complaint: Recheck/Abnormal Lab/Rx Stated complaint: Kidney Stones Time Seen by Provider: 11/24/20 23:03 Source: patient, EMS Mode of arrival: EMS Limitations: no limitations - History of Present Illness Initial comments: This patient is a 64-year-old man who is transferred here from [facility] to have further evaluation and treatment of left flank pain. The patient's symptoms started a little over 24 hours ago. He states that it was very similar to previous episode of kidney stone. He tried managing at home with some medication, but things worsened and around noon he went to the other facility. He had evaluation including computed tomography scan that showed left-sided hydronephrosis and the presence of a possibly 1-2 mm left-sided ureteral stone. He was given symptomatic treatment, was feeling better and went home but his symptoms recurred and he went back around 7 or 8 tonight. Given that the patient was having recurrence of severe pain, case was discussed here and accept transfer. The patient states that his symptoms have currently been managed with the analgesia that he be given there. He declines additional analgesia now -: hour(s) Location: abdomen, left Radiation: back Severity scale (1-10): 5 Quality: aching, sharp Consistency: colicky Improves with: none Worsens with: none Associated Symptoms: nausea/vomiting Treatments Prior to Arrival: other - Related Data Home Medications Medication Instructions Recorded Confirmed Omeprazole 20 mg PO QAM 10/28/15 07/21/20 Potassium Citrate [Urocit-K] 15 meq PO BID 10/28/15 07/21/20 Pravastatin Sodium [Pravachol] 20 mg PO HS 10/28/15 07/21/20 HYDROcodone/APAP 5-325MG [[facility] 1 tab PO DIRECTED PRN 03/18/20 07/21/20 5-325] Multivitamins, Thera [Multivitamin 1 tab PO DAILY 03/18/20 07/21/20 (formulary)] Allopurinol [Zyloprim] 300 mg PO DAILY 07/21/20 07/21/20 Cholecalciferol [Vitamin D3 (25 1,000 unit PO DAILY 07/21/20 07/21/20 Mcg = 1000 Iu)] Previous Rx's Medication Instructions Recorded Ibuprofen 600 mg PO Q6H PRN #30 tab 09/11/20 Allergies Allergy/AdvReac Type Severity Reaction Status Date / Time No Known Allergies Allergy Verified 11/24/20 23:01 Review of Systems ROS Statement: Those systems with pertinent positive or pertinent negative responses have been documented in the HPI. ROS Other: All systems not noted in ROS Statement are negative. Constitutional: Denies: fever, chills Respiratory: Denies: cough, dyspnea Cardiovascular: Denies: chest pain, palpitations, edema, syncope Gastrointestinal: Reports: abdominal pain, nausea, vomiting. Denies: diarrhea, constipation, hematemesis, melena, hematochezia Genitourinary: Denies: urgency, dysuria, frequency, hematuria, testicular pain, testicular mass Musculoskeletal: Denies: back pain Skin: Denies: rash Neurological: Denies: headache, weakness Past Medical History Past Medical History: GERD/Reflux, Hyperlipidemia Additional Past Medical History / Comment(s): Multiple nephrolithiasis, right kidney is smaller. Was unable to urinate after last kidney stone procedure 03/24/20 and had catheter inserted for 4-5 days post-op. ([facility]) History of Any Multi-Drug Resistant Organisms: None Reported Past Surgical History: Hernia Repair Additional Past Surgical History / Comment(s): Multiple lithotripsies, bilateral inguinal hernia repairs, cataracts, colonoscopy, cystoscopy with lithotripsy with right ureteral stent, left ureteral stent. Past Anesthesia/Blood Transfusion Reactions: Postoperative Nausea & Vomiting (PONV) Additional Past Anesthesia/Blood Transfusion Reaction / Comment(s): UNABLE TO URINATE AFTER LAST KIDNEY STONE PROCEDURE AND HAD TO HAVE CATHETER INSERTED. Past Psychological History: No Psychological Hx Reported Smoking Status: Former smoker Past Alcohol Use History: None Reported Past Drug Use History: None Reported - Past Family History Father Family Medical History: COPD, Coronary Artery Disease (CAD), Myocardial Infarction ([place]) Additional Family Medical History / Comment(s): Father of a [place] at age 67 yrs. He was a smoker. Mother Additional Family Medical History / Comment(s): Rds. Mother at age 90 yrs of age. General Exam Limitations: no limitations General appearance: alert, in no apparent distress Head exam: Present: atraumatic, normocephalic Eye exam: Present: normal appearance. Absent: scleral icterus, conjunctival injection ENT exam: Present: normal oropharynx Neck exam: Present: normal inspection Respiratory exam: Present: normal lung sounds bilaterally. Absent: respiratory distress, wheezes, rales, rhonchi, stridor Cardiovascular Exam: Present: regular rate, normal rhythm, normal heart sounds. Absent: systolic murmur, diastolic murmur, rubs, gallop GI/Abdominal exam: Present: soft. Absent: distended, tenderness, guarding, rebound, rigid, mass Extremities exam: Present: normal inspection, normal capillary refill. Absent: pedal edema, calf tenderness Back exam: Present: normal inspection, CVA tenderness (L). Absent: CVA tenderne ss (R) Neurological exam: Present: alert Skin exam: Present: warm, dry, intact, normal color. Absent: rash Course Vital Signs 11/24/20 22:55 Temperature 97.3 F L Pulse Rate 81 Respiratory 16 Rate Blood Pressure 170/108 O2 Sat by Pulse 96 Oximetry Disposition Clinical Impression: Hydronephrosis, Intractable abdominal pain, Acute kidney injury Disposition: ADMITTED IP TO [facility] Condition: Good Is patient prescribed a controlled substance at d/c from ED?: No Referrals: Matthew De La Fuente MD [Primary Care Provider] - 1-2 days
[2020-11-24] MEDS ORDERED: ONDANSETRON 4 MG/2 ML VIAL IVP PRN (23:25)
[2020-11-24] MEDS ORDERED: HYDROmorphone 0.5 MG/0.5 ML SYRINGE IVP PRN (23:25)
[2020-11-24] MEDS ORDERED: NALOXONE 0.4 MG/ML 1 ML VIAL IV PRN (23:25)
[2020-11-24] MEDS ORDERED: HYDROmorphone 1 MG/ML 1 ML SYRINGE IVP PRN (23:25)
[2020-11-24] MEDS: SODIUM CHLORIDE 0.9% 1,000 ML IV SCH (23:49)
--- NOTE | 2020-11-25 07:28 | P.GSHP ---
History of Present Illness H&P Date: 11/25/20 64 yo male with a history of stones. He has been having left flank pain. He was found to have on ct scan a 2 mm distal left ureteral stone. He also may have a stone induced left ureteral stricture. He is admitted for pain control and probable left ureteroscopy with laser lithotripsy and probable stent by Dr Sloan. - Constitutional Constitutional: Denies chills, Denies fever - EENT Eyes: denies blurred vision, denies pain Ears, nose, mouth and throat: Denies headache, Denies sore throat - Cardiovascular Cardiovascular: Denies chest pain, Denies shortness of breath - Respiratory Respiratory: Denies cough, Denies 7 - Gastrointestinal Gastrointestinal: Denies abdominal pain, Denies diarrhea, Denies nausea, Denies vomiting - Genitourinary (Female) Genitourinary: Denies dysuria, Denies hematuria - Genitourinary (Male) Genitourinary: Denies dysuria, Denies hematuria - Musculoskeletal Musculoskeletal: Denies myalgias - Integumentary Integumentary: Denies pruritus, Denies rash - Neurological Neurological: Denies numbness, Denies weakness - Psychiatric Psychiatric: Denies anxiety, Denies depression - Endocrine Endocrine: Denies fatigue, Denies weight change Past Medical History Past Medical History: GERD/Reflux, Hyperlipidemia Additional Past Medical History / Comment(s): Multiple nephrolithiasis, right kidney is smaller. Was unable to urinate after last kidney stone procedure 03/24/20 and had catheter inserted for 4-5 days post-op. ([facility]) History of Any Multi-Drug Resistant Organisms: None Reported Past Surgical History: Hernia Repair Additional Past Surgical History / Comment(s): Multiple lithotripsies, bilateral inguinal hernia repairs, cataracts, colonoscopy, cystoscopy with lithotripsy with right ureteral stent, left ureteral stent. Past Anesthesia/Blood Transfusion Reactions: Postoperative Nausea & Vomiting (PONV) Additional Past Anesthesia/Blood Transfusion Reaction / Comment(s): UNABLE TO URINATE AFTER LAST KIDNEY STONE PROCEDURE AND HAD TO HAVE CATHETER INSERTED. Past Psychological History: No Psychological Hx Reported Smoking Status: Former smoker Past Alcohol Use History: None Reported Past Drug Use History: None Reported - Past Family History Father Family Medical History: COPD, Coronary Artery Disease (CAD), Myocardial Infarction ([place]) Additional Family Medical History / Comment(s): Father of a [place] at age 67 yrs. He was a smoker. Mother Additional Family Medical History / Comment(s): Abiodun. Mother at age 90 yrs of age. Medications and Allergies Home Medications Medication Instructions Recorded Confirmed Type Omeprazole 20 mg PO DAILY 10/28/15 11/25/20 History Potassium Citrate [Urocit-K] 15 meq PO BID 10/28/15 11/25/20 History Pravastatin Sodium [Pravachol] 20 mg PO HS 10/28/15 11/25/20 History Multivitamins, Thera [Multivitamin 1 tab PO DAILY 03/18/20 11/25/20 History (formulary)] Allopurinol [Zyloprim] 300 mg PO DAILY 07/21/20 11/25/20 History Cholecalciferol [Vitamin D3 (25 25 mcg PO DAILY 11/25/20 11/25/20 History Mcg = 1000 Iu)] Tamsulosin HCl [Flomax] 0.4 mg PO DAILY 11/25/20 11/25/20 History Allergies Allergy/AdvReac Type Severity Reaction Status Date / Time No Known Allergies Allergy Verified 11/25/20 06:54 Surgical - Exam Vital Signs Temp Pulse Resp BP Pulse Ox 97.3 F L 81 16 170/108 96 11/24/20 22:55 11/24/20 22:55 11/24/20 22:55 11/24/20 22:55 11/24/20 22:55 - General mild discomfort well developed, well nourished - Eyes PERRL - ENT no hearing loss - Neck trachea midline - Respiratory normal expansion, normal respiratory effort - Cardiovascular Rhythm: regular - Abdomen Abdomen: soft, non tender - Genitourinary normal penis with no external lesions, testicles present - Integumentary no rash, no growths - Neurologic normal coordination, normal sensation - Musculoskeletal normal gait - Psychiatric oriented to time, oriented to place, speech is normal Assessment and Plan Assessment: Impression: Left rueteral stone with colic Plan admit for pain control, left ureteroscopy with laser lithotriosy
[2020-11-25 07:53] LABS: Basophils % (A) 0 %; Eosinophils # (A) 0.1 k/uL (0-0.7); Eosinophils % (A) 1 %; HCT 43.7 % (39.0-53.0); HGB 14.3 gm/dL (13.0-17.5); Lymphocytes # (A) 1.4 k/uL (1.0-4.8); Lymphocytes % (A) 19 %; MCH 30.8 pg (25.0-35.0); MCHC 32.7 g/dL (31.0-37.0); MCV 94.4 fL (80.0-100.0); Mean Platelet Volume 8.9; Monocytes # (A) 0.5 k/uL (0-1.0); Monocytes % (A) 7 %; Neutrophils # (A) 5.2 k/uL (1.3-7.7); Neutrophils % (A) 71 %; Platelet Count 151 k/uL (150-450); RBC 4.63 m/uL (4.30-5.90); RDW 14.3 % (11.5-15.5); WBC 7.3 k/uL (3.8-10.6)
[2020-11-25 08:08] LABS: Calcium 8.8 mg/dL (8.4-10.2); Potassium 3.8 mmol/L (3.5-5.1)
[2020-11-25] MEDS: PANTOPRAZOLE 40 MG/10 ML VIAL IV SCH (09:21)
[2020-11-25] MEDS ORDERED: ONDANSETRON 4 MG/2 ML VIAL ONE (15:15)
[2020-11-25] MEDS ORDERED: LACTATED RINGERS 1,000 ML IV ONE (15:33)
[2020-11-25] MEDS ORDERED: DEXAMETHASONE SOD PHOSPHATE 4 MG/ML 1 ML VIAL IVP ONE (15:34)
[2020-11-25] MEDS ORDERED: ONDANSETRON 4 MG/2 ML VIAL IVP ONE (15:34)
[2020-11-25] MEDS ORDERED: LIDOCAINE 1% INJ 10MG/ML (20 ML MDV) ONE (16:12)
[2020-11-25] MEDS ORDERED: SUCCINYLCHOLINE CHLORIDE 100 MG/5 ML SYR IV ONE (16:12)
[2020-11-25] MEDS ORDERED: MIDAZOLAM 2 MG/2 ML VIAL ONE (16:12)
[2020-11-25] MEDS ORDERED: fentaNYL (PF) 50 MCG/ML 2 ML AMP ONE (16:12)
[2020-11-25] MEDS ORDERED: PROPOFOL 10 MG/ML 20 ML VIAL IV ONE (16:12)
[2020-11-25] MEDS ORDERED: IOPAMIDOL-370 50ML BTL MISCELLANE ONE ×2 (16:46)
--- NOTE | 2020-11-25 17:34 | P.OP ---
Date of Procedure: 11/25/20 Preoperative Diagnosis: Left ureteral stone, hydronephrosis Postoperative Diagnosis: Hydronephrosis Procedure(s) Performed: Cystoscopy, left retrograde pyelogram, ureteroscopy, laser incision of a ureteral stricture,and stent placement Implants: 6-Scottish by 26 cm stent Anesthesia: LYUDMILA Surgeon: Edgar Sloan Estimated Blood Loss (ml): 1 Pathology: none sent Condition: stable Disposition: PACU Indications for Procedure: This is a 64-year-old male with history of recurrent kidney stones. He has a history of distal ureteral rest stricture, status post laser incision of ureteral stricture, postoperative images showed evidence of hydronephrosis. He was advised to undergo ureteral reimplant, he declined at this time. He presented to the emergency department with left flank pain, had a CT scan done which showed evidence of a 1 mm stone and severe hydronephrosis with a possible ureteral stricture. I discussed with him the option of doing a ureteroscopy, with holmium laser lithotripsy. Discussed with him the option of performing laser incision of the ureter stricture, and discussed with him the likelihood of success is fairly low, and he is better served with ureteral implant. He indicated he wanted to proceed with laser incision of ureteral stricture at this time, and declined ureteral reimplant. Discussed with him the need a postoperative stent. Discussed with him the risk which includes but not limited to bleeding, infection, injury to the ureter. Discussed also with him the low likelihood of success. He understood all the risk and agreed to proceed Operative Findings: Narrowing in the distal ureter, at the previous stricture site, I was able to advance the scope past the stricture Description of Procedure: Patient was brought to the operating room, general anesthesia was induced. He was prepped and draped in sterile fashion placed in a dorsal lithotomy position. Cystoscopy fitted with a 21-Scottish sheath was inserted per urethra, cystoscopy was performed showed no abnormality within the bladder. Attention was then carried to the left ureteral orifice which was intubated with an open-ended catheter, retrograde pyelogram was performed which showed some narrowing in the distal ureter approximately 4 cm from the UVJ, with severe hydroureteronephrosis. Delayed images was obtained which showed adequate drainage of contrast from the collecting system. At this time a sensor wire was advanced through the catheter and the catheter was removed with the wire in place. Next the semirigid ureteroscope was inserted and advanced up the left ureteral orifice, ureteral stricture was encountered 4 cm from the UVJ, stricture measured approximately 1 cm in size. Of note I was able to advance the scope past the stricture, with the assistance over the wire. The scope was advanced all the way up to the mid ureter without any finding of any stones or any additional strictures. Retrograde Polygram was performed showed no additional filling defect. At this time pullback ureteroscopy was performed which I visualized the narrowing in the distal ureter but no evidence of any stone. At this time a sensor wire was advanced through the ureteroscope and the ureteroscope was withdrawn with the wire in place. Next I attempted to pass the flexible ureteroscope over the wire but I was not able to advance the ureteroscope past the narrowing in the ureter. Next attempted to pass a ureteral access sheath over the wire but again resistance was met at the stricture. At this time the semirigid ureteroscope was reinserted and advanced up the left ureteral orifice, the stricture was visualized, using the holmium laser the stricture was incised, down to the ureteral fat. The scope was advanced past the area of narrowing without any difficulty. At this time the ureteroscope was withdrawn and a ureteral stent was passed over the wire, the proximal curl was visualized on fluoroscopy and the distal curl was visualized using the cystoscope. The bladder was emptied and of the case. The patient tolerated the procedure well was taken to PACU in stable condition
[2020-11-25] MEDS: POTASSIUM CITRATE 5 MEQ TABLET.ER PO SCH (20:47)
[2020-11-25] MEDS: SODIUM CHLORIDE 0.9% 1,000 ML IV SCH (20:51)
[2020-11-25] MEDS ORDERED: PRAVASTATIN SODIUM 20 MG TAB PO SCH (21:00)
[2020-11-26] MEDS: SODIUM CHLORIDE 0.9% 1,000 ML IV SCH (05:59)
[2020-11-26] MEDS ORDERED: PANTOPRAZOLE 40 MG TABLET PO SCH (07:30)
[2020-11-26 07:53] VITALS: BP 154/91; PULSE 80; RESP 14; TEMP 98
--- NOTE | 2020-11-26 07:55 | P.DS ---
Providers Date of admission: 11/24/20 23:27 Attending physician: Kobe Collier Primary care physician: Matthew De La Fuente Hospital Course: 64 yo male with hx of left sided ureteral stricture he was admitted to the hospital with intractable pain, He was taken to the OR on 11/25 for laser incision of left ureteral stricture. Please see op note dated 11/25 for surgery details. He was discharged home on postoperative day #1, at time of discharge he was tolerating a diet, pain was controlled, ambulating. He will follow-up in 2-3 weeks for stent removal Patient Condition at Discharge: Good Plan - Discharge Summary Discharge Rx Participant: No New Discharge Prescriptions: New traMADol HCl [Ultram] 50 mg PO Q4HR PRN 3 Days #18 tab PRN Reason: Pain No Action Pravastatin Sodium [Pravachol] 20 mg PO HS Omeprazole 20 mg PO DAILY Potassium Citrate [Urocit-K] 15 meq PO BID Multivitamins, Thera [Multivitamin (formulary)] 1 tab PO DAILY Allopurinol [Zyloprim] 300 mg PO DAILY Cholecalciferol [Vitamin D3 (25 Mcg = 1000 Iu)] 25 mcg PO DAILY Tamsulosin HCl [Flomax] 0.4 mg PO DAILY Discharge Medication List Omeprazole 20 mg PO DAILY 10/28/15 [History] Potassium Citrate [Urocit-K] 15 meq PO BID 10/28/15 [History] Pravastatin Sodium [Pravachol] 20 mg PO HS 10/28/15 [History] Multivitamins, Thera [Multivitamin (formulary)] 1 tab PO DAILY 03/18/20 [History] Allopurinol [Zyloprim] 300 mg PO DAILY 07/21/20 [History] Cholecalciferol [Vitamin D3 (25 Mcg = 1000 Iu)] 25 mcg PO DAILY 11/25/20 [History] Tamsulosin HCl [Flomax] 0.4 mg PO DAILY 11/25/20 [History] traMADol HCl [Ultram] 50 mg PO Q4HR PRN 3 Days #18 tab 11/26/20 [Rx] Follow up Appointment(s)/Referral(s): Matthew De La Fuente MD [Primary Care Provider] - 1-2 days Activity/Diet/Wound Care/Special Instructions: Increase fluid intake You may see some blood in the urine Follow up in 2-3 weeks for stent removal Discharge Disposition: HOME SELF-CARE
[2020-11-26] MEDS: PANTOPRAZOLE 40 MG/10 ML VIAL IV SCH (08:19)
[2020-11-26] MEDS: POTASSIUM CITRATE 5 MEQ TABLET.ER PO SCH (08:20)
[2020-11-26] MEDS ORDERED: MULTIVITAMINS, THERA 1 EACH TAB PO SCH (09:00)
[2020-11-26] MEDS ORDERED: TAMSULOSIN 0.4 MG CAP.ER.24H PO SCH (09:00)
[2020-11-26] MEDS ORDERED: allopurinoL 300 MG TAB PO SCH (09:00)
[2020-11-26] MEDS ORDERED: CHOLECALCIFEROL 25 MCG (1000 IU) TABLET PO SCH (09:00)
== END 2020-11-26 10:11 | disposition home or self-care (01) | DRG 694 ==
LOC: EC 22:53 → 5NMEDONC 23:27
PROVIDERS: ADMIT Urology; ATTEND Urology
PROC: BT1F1ZZ Fluoroscopy of Left Kidney, Ureter and Bladder using Low Osmolar Contrast (ICD-10-PCS; principal; 2020-11-25 16:17)
DX: N20.2 Calculus of kidney with calculus of ureter (principal); N13.2 Hydronephrosis with renal and ureteral calculous obstruction; N17.9 Acute kidney failure, unspecified; E78.5 Hyperlipidemia, unspecified; K21.9 Gastro-esophageal reflux disease without esophagitis; Z87.442 Personal history of urinary calculi; H26.9 Unspecified cataract; K40.20 Bilateral inguinal hernia, without obstruction or gangrene, not specified as recurrent; Z79.899 Other long term (current) drug therapy; Z82.49 Family history of ischemic heart disease and other diseases of the circulatory system; Z82.5 Family history of asthma and other chronic lower respiratory diseases; Z87.891 Personal history of nicotine dependence
CPT/HCPCS: 80048; 85025; 99285